=== PATIENT | female | born 1975 ===

== ENCOUNTER 2018-11-29 21:26 | Emergency (ER) | payer OTHER ==
[2018-11-29] MEDS ORDERED: ACETAMINOPHEN 500 MG 500 MG TAB PO ONE (21:53)
[2018-11-29] MEDS ORDERED: CYCLOBENZAPRINE 10 MG TAB PO ONE (21:54)
[2018-11-29] MEDS ORDERED: KETOROLAC TROMETHAMINE 30 MG/ML SOL IM ONE (21:54)
[2018-11-29] MEDS ORDERED: KETOROLAC TROMETHAMINE 30 MG/ML SOL ONE (22:00)
[2018-11-29] MEDS ORDERED: ACETAMINOPHEN 500 MG 500 MG TAB ONE (22:00)
[2018-11-29] MEDS ORDERED: CYCLOBENZAPRINE 10 MG TAB ONE (22:00)
[2018-11-29 22:04] LABS: BASOPHILS % (AUTO) 1 % (0-3); EOSINOPHILS % (AUTO) 3 % (0-9); HEMATOCRIT 34 % (35-47); HEMOGLOBIN 12.1 gm/dl (12.0-15.5); LYMPHOCYTES % (AUTO) 36.4 % (10-50); MEAN CORPUSCULAR HEMOGLOBIN 31.1 pg (27.0-32.0); MEAN CORPUSCULAR HGB CONC 35.2 gm/dl (32.0-36.0); MEAN CORPUSCULAR VOLUME 88 fL (81-99); MONOCYTES % (AUTO) 4.9 % (0-12); NEUTROPHILS % (AUTO) 54.7 % (37-80)
[2018-11-29 22:14] LABS: CALCIUM 8.5 mg/dl (8.5-10.1); CARBON DIOXIDE 25.9 mEq/L (21-32); CREATININE 0.78 mg/dl (0.60-1.00); POTASSIUM 3.6 mMol/L (3.5-5.1)
[2018-11-29 22:38] VITALS: TEMP 97.1
[2018-11-29 22:45] VITALS: RESP 16
[2018-11-29 22:57] VITALS: PULSE 77; O2SAT 97
[2018-11-29 23:04] VITALS: BP 143/99
== END 2018-11-29 23:13 | disposition home or self-care (01) | DRG 552 ==
LOC: ED 21:26
DX: M54.5 Low back pain (principal); V49.9XXA Car occupant (driver) (passenger) injured in unspecified traffic accident, initial encounter; M25.551 Pain in right hip; R40.2362 Coma scale, best motor response, obeys commands, at arrival to emergency department; R40.2142 Coma scale, eyes open, spontaneous, at arrival to emergency department; R40.2252 Coma scale, best verbal response, oriented, at arrival to emergency department; E11.9 Type 2 diabetes mellitus without complications; Z79.4 Long term (current) use of insulin
CPT/HCPCS: 36415; 72120; 73501; 80048; 84703; 85025; 96372; 99283; 99284; J1885; A9270-GY